=== PATIENT | male | born 1980 | race Caucasian/White ===

== ENCOUNTER 2018-10-11 21:09 | Emergency (ER) | payer OTHER ==
[2018-10-11] MEDS: IBUPROFEN 800 MG TAB PO (22:11)
[2018-10-11] MEDS: CEFTRIAXONE 1 GM INJ IM (22:17)
== END 2018-10-11 22:49 | disposition home or self-care (01) ==
LOC: FTE 21:09
DX: L02.416 Cutaneous abscess of left lower limb (principal); L03.116 Cellulitis of left lower limb
CPT/HCPCS: 96372; 99284-25